=== PATIENT | male | born 1955 | race Hispanic/Latino ===

== ENCOUNTER 2020-05-13 12:12 | Emergency (ER) | payer OTHER ==
--- NOTE | 2020-05-14 07:27 | EDPHYS ---
Physician Documentation [facility] Name: Uli Ackerman Age: 65 yrs Sex: Male : 1955 Arrival Date: 05/13/2020 Time: 12:17 Bed 19 Private MD: ED Physician Kishore Gonsales HPI: 05/13 12:35 This 65 yrs old Male presents to ER via Ambulatory with complaints of Fall rn Injury. 12:35 Details of fall: The patient fell from an upright position. rn 12:36 Onset: The symptoms/episode began/occurred 2 day(s) ago. rn 12:52 Associated injuries: The patient sustained injury to the head. Severity of symptoms: At rn their worst the symptoms were mild, in the emergency department the symptoms are unchanged. The patient has not experienced similar symptoms in the past. The patient has not recently seen a physician. Reports fell backward from standing, thinks lost his balance, reports hit head on table, no LOC, no vomiting, happened 2 days ago, no seizure, feels fine, is on blood thinner that he does not know name, and told him to come get checked. . Historical: - Allergies: 12:39 No Known Allergies; ks7 - Home Meds: 12:39 Novolog 100 unit/mL Sub-Q soln [Active]; Lantus 100 unit/mL Sub-Q soln [Active]; ks7 metformin 500 mg Oral tab 1 tab 2 times per day [Active]; aspirin 81 mg Oral TbEC 1 tab once daily [Active]; Vitamin B-12 500 mcg Oral tab [Active]; - PMHx: 12:39 Diabetes - NIDDM; Hypertension; ks7 - PSHx: 12:39 Tonsillectomy; Cataract Surgery; ks7 - Immunization history: Last tetanus immunization: - up to date. - Social history:: Smoking status: Patient denies any tobacco usage or history of. - Family history:: not pertinent. - Hospitalizations: : No recent hospitalization is reported. ROS: 12:52 Constitutional: Negative for fever, chills, and weight loss, Eyes: Negative for injury, rn pain, redness, and discharge, Neck: Negative for injury, pain, and swelling, Cardiovascular: Negative for chest pain, palpitations, and edema, Respiratory: Negative for shortness of breath, cough, wheezing, and pleuritic chest pain, Abdomen/GI: Negative for abdominal pain, nausea, vomiting, diarrhea, and constipation, MS/Extremity: Negative for injury and deformity, Neuro: Negative for headache, numbness, tingling, and seizure. Exam: 12:52 Constitutional: This is a well developed, well nourished patient who is awake, alert, rn and in no acute distress. Head/Face: Normocephalic, abrasion left posterior temproal region, no depression, no laceration Eyes: Pupils equal round and reactive to light, extra-ocular motions intact. Neck: Trachea midline, no masses palpated, Supple, full range of motion without nuchal rigidity, or vertebral point tenderness. No Meningismus. Cardiovascular: Regular rate and rhythm. No pulse deficits. Respiratory: No increased work of breathing, no retractions or nasal flaring. Abdomen/GI: soft, non-tender Back: No spinal tenderness. No costovertebral tenderness. Full range of motion. MS/ Extremity: Pulses equal, no cyanosis. Neurovascular intact. Full, normal range of motion. Equal circumference. Neuro: Awake and alert, GCS 15, oriented to person, place, time, and situation. Cranial nerves II-XII grossly intact. Motor strength 5/5 in all extremities. Sensory grossly intact. Cerebellar exam normal. Normal gait. Vital Signs: 12:25 BP 182 / 85; Pulse 87; Resp 18; Temp 98.7(O); Pulse Ox 99% on R/A; Pain 0/10; ks7 12:59 BP 134 / 76; Pulse 85; Resp 18; Pulse Ox 99% on R/A; Pain 0/10; ks7 13:11 BP 126 / 78; Pulse 80; Resp 18; Temp 98.6(O); Pulse Ox 98% on R/A; Pain 0/10; ks7 Mikayla Coma Score: 12:25 Eye Response: spontaneous(4). Verbal Response: oriented(5). Motor Response: obeys ks7 commands(6). Total: 15. Trauma Score (Adult): 12:25 Eye Response: spontaneous(1); Verbal Response: oriented(1); Motor Response: obeys ks7 commands(2); Systolic BP: > 89 mm Hg(4); Respiratory Rate: 10 to 29 per min(4); Gloster Score: 15; Trauma Score: 12 MDM: 12:19 Patient medically screened. rn 12:54 ED course: Pt reports some weight loss over last few months along with weak urine rn stream, recommend f/u with urology and pcp for prostate screening and evaluation for cancer. . 13:02 Differential diagnosis: closed head injury. Data reviewed: vital signs, nurses notes, rn radiologic studies, CT scan, and as a result, I will discharge patient. Counseling: I had a detailed discussion with the patient and/or guardian regarding: the historical points, exam findings, and any diagnostic results supporting the discharge/admit diagnosis, radiology results, the need for outpatient follow up, to return to the emergency department if symptoms worsen or persist or if there are any questions or concerns that arise at home. Special discussion: Based on the patient's history, exam and DX evaluation, there is no indication for emergent intervention or inpatient [place]. It is understood by the patient/guardian that if the SXs persist or worsen they need to return immediately for re-evaluation. I discussed with the patient/guardian in detail that at this point there is no indication for admission to the hospital. It is understood, however, that if the symptoms persist or worsen the patient needs to return immediately for re-evaluation. Administered Medications: No medications were administered Disposition: 05/13/20 13:03 Discharged to Home. Impression: Superficial injury of head. - Condition is Stable. - Discharge Instructions: Head Injury, Adult. - Medication Reconciliation Form, Thank You Letter, Antibiotic Education, Prescription Opioid Use form. - Follow up: Private Physician; When: As needed; Reason: Recheck today's complaints, Re-evaluation by your physician. - Problem is new. - Symptoms have improved. Signatures: Kishore Gonsales MD MD rn Songcuan, Kathleen, RN RN ks7 Corrections: (The following items were deleted from the chart) 13:15 13:03 05/13/2020 13:03 Discharged to Home. Impression: Superficial injury of head. ks7 Condition is Stable. Forms are Medication Reconciliation Form, Thank You Letter, Antibiotic Education, Prescription Opioid Use. Follow up: Private Physician; When: As needed; Reason: Recheck today's complaints, Re-evaluation by your physician. Problem is new. Symptoms have improved. rn
--- NOTE | 2020-05-14 07:27 | ER ---
Nurse's Notes [facility] Name: Uli Ackerman Age: 65 yrs Sex: Male : 1955 Arrival Date: 05/13/2020 Time: 12:17 Bed 19 Private MD: Diagnosis: Superficial injury of head Presentation: 05/13 12:30 Chief complaint: Patient states: pt comes in from home c/o GLF on Wednesday. Denies LOC. ks7 Denies BENITO. c/o generalized weakness ongoing. Care prior to arrival: None. Mechanism of Injury: Fall GLF from standing. 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 No LOC. Trauma event details: Injury occurred: at home. 12:30 Acuity: CHELSEA 3 ks7 12:30 Method Of Arrival: Ambulatory ks7 13:14 Coronavirus screen: Client denies travel out of the [place] in the last 14 days. At this ks7 time, the client does not indicate any symptoms associated with coronavirus-19. The client denies any previous COVID testing. Ebola Screen: Patient negative for fever greater than or equal to 101.5 degrees Fahrenheit, and additional compatible Ebola Virus Disease symptoms Patient denies exposure to infectious person. Patient denies travel to an Ebola-affected area in the 21 days before illness onset. Initial Sepsis Screen: Does the patient meet any 2 criteria? No. Patient's initial sepsis screen is negative. Does the patient have a suspected source of infection? No. Patient's initial sepsis screen is negative. Risk Assessment: Do you want to hurt yourself or someone else? Patient reports no desire to harm self or others. Onset of symptoms was May 11, 2020. Trauma Activation: Not Applicable Physician: ED Physician; Name: ; Notified At: ; Arrived At: Physician: General Surgeon; Name: ; Notified At: ; Arrived At: Physician: Radiology; Name: ; Notified At: ; Arrived At: Physician: Respiratory; Name: ; Notified At: ; Arrived At: Physician: Lab; Name: ; Notified At: ; Arrived At: Historical: - Allergies: 12:39 No Known Allergies; ks7 - Home Meds: 12:39 Novolog 100 unit/mL Sub-Q soln [Active]; Lantus 100 unit/mL Sub-Q soln [Active]; ks7 metformin 500 mg Oral tab 1 tab 2 times per day [Active]; aspirin 81 mg Oral TbEC 1 tab once daily [Active]; Vitamin B-12 500 mcg Oral tab [Active]; - PMHx: 12:39 Diabetes - NIDDM; Hypertension; ks7 - PSHx: 12:39 Tonsillectomy; Cataract Surgery; ks7 - Immunization history: Last tetanus immunization: - up to date. - Social history:: Smoking status: Patient denies any tobacco usage or history of. - Family history:: not pertinent. - Hospitalizations: : No recent hospitalization is reported. Screenin:25 Abuse screen: Denies threats or abuse. Denies injuries from another. Tuberculosis ks7 screening: No symptoms or risk factors identified. 12:40 Nutritional screening: No deficits noted. Fall Risk Fall in past 12 months (25 points). ks7 No secondary diagnosis (0 pts). No IV (0 pts). Ambulatory Aid- None/Bed Rest/Nurse Assist (0 pts). Gait- Normal/Bed Rest/Wheelchair (0 pts) Mental Status- Oriented to own ability (0 pts). Total Frank Fall Scale indicates Low Risk Score (25-44 pts). Side Rails Up X 2 Frequent Obs/Assesments occuring As available Patient and Family Educated on Fall Prevention Program and strategies. Primary Survey: 12:28 NO uncontrolled hemorrhage observed. A: Airway: patent. Breathing/Chest: Respiratory ks7 pattern: regular. Circulation: Cardiac rhythm: sinus rhythm. Disability Alert. Exposure/Environment: There is no evidence of uncontrolled external bleeding. No obvious injuries are noted at this time. 13:12 Reassessment Breathing/Chest Respiratory pattern Regular Respiratory effort Spontaneous ks7 Unlabored. Secondary Survey: 12:32 HEENT: No deficits noted. Gastrointestinal: No deficits noted. : No deficits noted. ks7 Musculoskeletal: No deficits noted. Assessment: 12:20 Reassessment: Pt comes in from home ambulatory. fell on Wednesday after trying to pick ksAdalgisa up a case of water, fell backwards and hit the back of his head. Pt denies LOC but had a hard time standing up after fall. States he feels weak, "like the energy is gone". Denies BENITO. Denies blood in his stool. pt is on blood thinners. pt comes in bc made him come in to get checked out. General: Appears in no apparent distress. Behavior is calm, cooperative. Neuro: No deficits noted. Reports weakness. Injury Description: Head injury sustained to Left parietal, occiput. was sustained 2 days ago. 12:33 Pain: Denies pain. ks7 Vital Signs: 12:25 BP 182 / 85; Pulse 87; Resp 18; Temp 98.7(O); Pulse Ox 99% on R/A; Pain 0/10; ks7 12:59 BP 134 / 76; Pulse 85; Resp 18; Pulse Ox 99% on R/A; Pain 0/10; ks7 13:11 BP 126 / 78; Pulse 80; Resp 18; Temp 98.6(O); Pulse Ox 98% on R/A; Pain 0/10; ks7 Mikayla Coma Score: 12:25 Eye Response: spontaneous(4). Verbal Response: oriented(5). Motor Response: obeys ks7 commands(6). Total: 15. Trauma Score (Adult): 12:25 Eye Response: spontaneous(1); Verbal Response: oriented(1); Motor Response: obeys ks7 commands(2); Systolic BP: > 89 mm Hg(4); Respiratory Rate: 10 to 29 per min(4); Mikayla Score: 15; Trauma Score: 12 ED Course: 12:17 Patient arrived in ED. ds1 12:19 Kishore Gonsales MD is Attending Physician. rn 12:19 Ping Hairston RN is Primary Nurse. ks7 12:25 Patient has correct armband on for positive identification. Bed in low position. Call ks7 light in reach. Side rails up X2. 12:25 Patient maintains SpO2 saturation greater than 95% on room air. ks7 12:32 Triage completed. ks7 12:[address] via wheelchair. ks7 12:40 No provider procedures requiring assistance completed. Patient did not have IV access ks7 during this emergency room visit. 12:50 Patient moved back from CT. ks7 13:14 Arm band placed on. ks7 13:14 Thermoregulation: none needed. ks7 Administered Medications: No medications were administered Intake: 12:25 PO: 0ml; Total: 0ml. ks7 Output: 12:25 Urine: 0ml; Total: 0ml. ks7 Outcome: 13:03 Discharge ordered by MD. rn 13:11 Discharged to home ambulatory. ks7 13:11 Condition: good 13:11 Patient's length of stay was not longer than 2 hours. 13:14 Discharge instructions given to patient, Instructed on discharge instructions, follow ks7 up and referral plans. Demonstrated understanding of instructions, follow-up care. 13:15 Patient left the ED. ks7 Signatures: MichaelFlorentini ds1 Kishore Gonsales MD MD rn Songcuan, Kathleen, RN RN ks7 Corrections: (The following items were deleted from the chart) 12:32 12:25 BP 182 / 85; Pulse 87bpm; Resp 18bpm; Pulse Ox 99% RA; Pain 0/10; ks7 ks7
[2020-05-14 08:48] VITALS: BP 126/78; TEMP 98.6; O2SAT 98
--- NOTE | 2020-05-14 12:36 | RAD REPORT ---
EXAM DESCRIPTION: CT - Head Brain Wo Cont - 05/13/2020 2:38 pm CLINICAL HISTORY: FALL Fall, trauma, head injury COMPARISON: No comparisons TECHNIQUE: All CT scans are performed using dose optimization technique as appropriate and may inclu de automated exposure control or mA/KV adjustment according to patient size. FINDINGS: No intracranial hemorrhage, hydrocephalus or extra-axial fluid collection.No areas of brai n edema or evidence of midline shift. The paranasal sinuses and mastoids are essentially clear. The calvarium is intact. IMPRESSION: No acute intracranial abnormality.
== END 2020-05-13 13:15 | disposition home or self-care (01) ==
LOC: ER 12:12
DX: S00.90XA Unspecified superficial injury of unspecified part of head, initial encounter (principal); W19.XXXA Unspecified fall, initial encounter; Y93.89 Activity, other specified; Y92.9 Unspecified place or not applicable; Z79.4 Long term (current) use of insulin; Z79.82 Long term (current) use of aspirin; I10 Essential (primary) hypertension; E11.9 Type 2 diabetes mellitus without complications
CPT/HCPCS: 70450; 99284

== ENCOUNTER 2020-08-17 14:38 | Emergency (ER) | payer OTHER ==
--- NOTE | 2020-08-17 15:52 | RAD REPORT ---
EXAM DESCRIPTION: RAD - Femur Left - 08/17/2020 3:36 pm CLINICAL HISTORY: Leg pain FINDINGS: No fracture seen
--- NOTE | 2020-08-17 16:22 | ER ---
Nurse's Notes [facility] Name: Uli Ackerman Age: 65 yrs Sex: Male : 1955 Arrival Date: 08/17/2020 Time: 14:40 Bed 25 Private MD: Diagnosis: Pain in left leg Presentation: 08/17 14:54 Chief complaint: Patient states: "I [facility] after I visited after a jd3 fall. the doctor had me get an ultrasound because of it. they told me to come here and get an X-ray because the ultrasound i had a hematoma, and it showed no blood clot. they just want to make sure it is ok with an x-ray." left thigh. Coronavirus screen: At this time, the client does not indicate any symptoms associated with coronavirus-19. Ebola Screen: Patient negative for fever greater than or equal to 101.5 degrees Fahrenheit, and additional compatible Ebola Virus Disease symptoms. Initial Sepsis Screen: Does the patient meet any 2 criteria? No. Patient's initial sepsis screen is negative. Does the patient have a suspected source of infection? No. Patient's initial sepsis screen is negative. Risk Assessment: Do you want to hurt yourself or someone else? Patient reports no desire to harm self or others. Onset of symptoms was August 17, 2020. 14:54 Method Of Arrival: Ambulatory jd3 14:54 Acuity: CHELSEA 4 jd3 Historical: - Allergies: 14:58 No Known Allergies; jd3 - Home Meds: 14:58 aspirin 81 mg Oral TbEC 1 tab once daily [Active]; Lantus 100 unit/mL Sub-Q soln jd3 [Active]; metformin 500 mg Oral tab 1 tab 2 times per day [Active]; Novolog 100 unit/mL Sub-Q soln [Active]; Vitamin B-12 500 mcg Oral tab [Active]; - PMHx: 14:58 Diabetes - NIDDM; Hypertension; jd3 - PSHx: 14:58 Tonsillectomy; Cataract Surgery; jd3 - Immunization history:: Adult Immunizations up to date. - Social history:: Smoking status: Patient denies any tobacco usage or history of. Screenin:00 Abuse screen: Denies threats or abuse. Nutritional screening: No deficits noted. aa5 Tuberculosis screening: No symptoms or risk factors identified. Fall Risk Fall in past 12 months (25 points). Ambulatory Aid- Crutches/Cane/Walker (15 pts). Total Frank Fall Scale indicates Low Risk Score (25-44 pts). Fall prevention measures have been instituted. Side Rails Up X 2 Placed close to Nursing Station. Assessment: 15:00 General: Appears comfortable, Behavior is calm, cooperative. Pain: Complains of pain in aa5 left leg Pain currently is 5 out of 10 on a pain scale. Quality of pain is described as aching. Neuro: Level of Consciousness is awake, alert, obeys commands, Oriented to person, place, time, situation. Cardiovascular: Patient's skin is warm and dry. Respiratory: Airway is patent Respiratory effort is even, unlabored, Respiratory pattern is regular, symmetrical. GI: No signs and/or symptoms were reported involving the gastrointestinal system. : No signs and/or symptoms were reported regarding the genitourinary system. EENT: No signs and/or symptoms were reported regarding the EENT system. Derm: Skin is pink, warm \\T\\ dry. Bruising that is green, yellow, on left lower leg. Musculoskeletal: Range of motion: intact in all extremities, Swelling present in left lower leg. 15:36 Reassessment: Patient is alert, oriented x 3, equal unlabored respirations, skin aa5 warm/dry/pink. Awaiting x-ray results, pt notified of wait time. . 16:35 Reassessment: Patient is alert, oriented x 3, equal unlabored respirations, skin aa5 warm/dry/pink. Vital Signs: 14:58 BP 163 / 86; Pulse 78; Resp 16 S; Temp 97.8(TE); Pulse Ox 99% on R/A; Weight 90.26 kg jd3 (R); Height 5 ft. 4 in. (162.56 cm) (R); Pain 5/10; 14:58 Body Mass Index 34.16 (90.26 kg, 162.56 cm) jd3 ED Course: 14:40 Patient arrived in ED. ag5 14:57 Triage completed. jd3 14:59 Arm band placed on. jd3 15:00 Patient has correct armband on for positive identification. Bed in low position. Call aa5 light in reach. Side rails up X2. Adult w/ patient. Pulse ox on. NIBP on. 15:02 David Schaffer NP is PHCP. pm1 15:02 Kishore Gonsales MD is Attending Physician. pm1 15:19 Valarie Aponte, RN is Primary Nurse. aa5 15:36 Femur Left XRAY In Process Unspecified. EDMS 16:36 No provider procedures requiring assistance completed. Patient did not have IV access aa5 during this emergency room visit. Administered Medications: No medications were administered Outcome: 16:21 Discharge ordered by . pm1 16:37 Discharged to home ambulatory, with significant other. aa5 16:37 Condition: stable 16:37 Discharge instructions given to patient, significant other, Instructed on discharge instructions, follow up and referral plans. Demonstrated understanding of instructions, follow-up care. 16:37 Patient left the ED. aa5 Signatures: Dispatcher [employer] EDCA Valarie Aponte, RN RN aa5 David Schaffer NP B[employer]ING[employer] RECEPTIONIST pm1 Johan Rodriguez RN RN [place] ag5
--- NOTE | 2020-08-17 16:22 | EDPHYS ---
Physician Documentation [facility] Name: Uli Ackerman Age: 65 yrs Sex: Male : 1955 Arrival Date: 08/17/2020 Time: 14:40 Bed 25 Private MD: ED Physician Kishore Gonsales HPI: 08/17 15:10 This 65 yrs old Male presents to ER via Ambulatory with complaints of Sent by pm1 Dr. Mccord - XRay of LT Thigh. 15:10 The patient presents with pain. The complaints affect the left upper leg. Context: The pm1 problem was sustained outdoors, resulted from the patient falling, can ambulate using a cane. Onset: The symptoms/episode began/occurred Patient fell in June 2020. Modifying factors: The symptoms are alleviated by nothing. the symptoms are aggravated by nothing. Associated signs and symptoms: Pertinent negatives calf tenderness, fever, numbness, swelling, tingling. Treatment prior to arrival includes: Patient with ultrasound of his leg 2 days ago that was negative for DVT. PCP sent him to the ER for xray of his left thigh. 15:46 Patient with left thigh pain and swelling in May 2020 due to apparent reaction to pm1 atorvastatin. He was hospitalized for 4 days and when he was discharged he reported left leg weakness. In June he was getting into a car and his left leg gave out and he almost fell down. His brother caught him from behind but he got left thigh pain and swelling. PCP performed ultrasound of his left leg 2 days ago and it was negative for DVT. There was a hematoma on the ultrasound. She called him today to come to the ER for x-ray left thigh. Historical: - Allergies: 14:58 No Known Allergies; jd3 - Home Meds: 14:58 aspirin 81 mg Oral TbEC 1 tab once daily [Active]; Lantus 100 unit/mL Sub-Q soln jd3 [Active]; metformin 500 mg Oral tab 1 tab 2 times per day [Active]; Novolog 100 unit/mL Sub-Q soln [Active]; Vitamin B-12 500 mcg Oral tab [Active]; - PMHx: 14:58 Diabetes - NIDDM; Hypertension; jd3 - PSHx: 14:58 Tonsillectomy; Cataract Surgery; jd3 - Immunization history:: Adult Immunizations up to date. - Social history:: Smoking status: Patient denies any tobacco usage or history of. ROS: 15:46 Constitutional: Negative for fever, chills, and weight loss, Cardiovascular: Negative pm1 for chest pain, palpitations, and edema, Respiratory: Negative for shortness of breath, cough, wheezing, and pleuritic chest pain. 15:46 Skin: Negative for injury, rash, and discoloration, Neuro: Negative for headache, weakness, numbness, tingling, and seizure. 15:46 MS/extremity: Positive for pain, of the left leg, Negative for decreased range of motion, deformity. 15:46 All other systems are negative. Exam: 15:46 Constitutional: This is a well developed, well nourished patient who is awake, alert, pm1 and in no acute distress. Head/Face: Normocephalic, atraumatic. 15:46 Skin: Warm, dry with normal turgor. Normal color with no rashes, no lesions, and no evidence of cellulitis. 15:46 Cardiovascular: Exam negative for acute changes, Rate: normal, Rhythm: regular, Pulses: no pulse deficits are appreciated, Edema: is not appreciated. 15:46 Respiratory: Exam negative for acute changes, respiratory distress, shortness of breath. 15:46 Musculoskeletal/extremity: Extremities: grossly normal except: noted in the distal left quadriceps: tenderness, There is no evidence of ecchymosis, swelling. 15:46 Neuro: Exam negative for acute changes, Orientation: is normal, Mentation: is normal, Motor: is normal, moves all fours. Vital Signs: 14:58 BP 163 / 86; Pulse 78; Resp 16 S; Temp 97.8(TE); Pulse Ox 99% on R/A; Weight 90.26 kg jd3 (R); Height 5 ft. 4 in. (162.56 cm) (R); Pain 5/10; 14:58 Body Mass Index 34.16 (90.26 kg, 162.56 cm) jd3 MDM: 15:02 Patient medically screened. pm1 15:39 ED course: Patient with negative ultrasound of left thigh 2 days ago for DVT. pm1 15:39 ED course: Patient does not have his ultrasound results and is under the impression pm1 that he is her just for a x-ray of his left thigh. I called Dr. Mccord with the patient but she is not educational coordinator for her patients and we were [facility]. 15:57 Data reviewed: vital signs. Data interpreted: Pulse oximetry: on room air is 99 %. pm1 Interpretation: normal. 16:20 Counseling: I had a detailed discussion with the patient and/or guardian regarding: the pm1 historical points, exam findings, and any diagnostic results supporting the discharge/admit diagnosis, radiology results, the need for outpatient follow up, to return to the emergency department if symptoms worsen or persist or if there are any questions or concerns that arise at home. 08/17 15:10 Order name: Femur Left XRAY; Complete Time: 15:57 pm1 Administered Medications: No medications were administered Disposition: 17:24 Co-signature as Attending Physician, Kishore Gonsales MD. rn Disposition: 08/17/20 16:21 Discharged to Home. Impression: Pain in left leg. - Condition is Stable. - Discharge Instructions: Musculoskeletal Pain. - Medication Reconciliation Form, Thank You Letter, Antibiotic Education, Prescription Opioid Use form. - Follow up: Emergency Department; When: As needed; Reason: Worsening of condition. Follow up: Private Physician; When: 2 - 3 days; Reason: Recheck today's complaints, Continuance of care, Re-evaluation by your physician. - Problem is new. - Symptoms are unchanged. Signatures: Dispatcher [employer] EDMS Kishore Gonsales MD MD rn Calderon, Audri, RN RN aa5 David Schaffer, TOBACCO SIZER TOBACCO SIZER pm1 Johan Rodriguez RN RN jd3 Corrections: (The following items were deleted from the chart) 15:50 15:10 Treatment prior to arrival includes: Patient with ultrasound of his leg 2 days pm1 ago that was negative. PCP sent him to the ER for xray of his left thigh, pm1 16:08 15:39 ED course: Patient with negative ultrasound of left thigh 2 days ago. pm1 pm1 16:37 16:21 08/17/2020 16:21 Discharged to Home. Impression: Pain in left leg. Condition is aa5 Stable. Forms are Medication Reconciliation Form, Thank You Letter, Antibiotic Education, Prescription Opioid Use. Follow up: Emergency Department; When: As needed; Reason: Worsening of condition. Follow up: Private Physician; When: 2 - 3 days; Reason: Recheck today's complaints, Continuance of care, Re-evaluation by your physician. Problem is new. Symptoms are unchanged. pm1
[2020-08-17 17:00] VITALS: BP 163/86; TEMP 97.8; O2SAT 99
== END 2020-08-17 16:37 | disposition home or self-care (01) ==
LOC: ER 14:38
DX: M79.605 Pain in left leg (principal); I10 Essential (primary) hypertension; E11.9 Type 2 diabetes mellitus without complications; Z79.82 Long term (current) use of aspirin
CPT/HCPCS: 99283

== ENCOUNTER → 2023-10-25 | Emergency (ER) | payer OTHER ==
[~2023-10-25] MED LIST: NA CHLORIDE 0.9% 1,000 ML ONE
--- NOTE | 2023-10-25 12:38 | RAD REPORT ---
EXAM DESCRIPTION: CT - Head Brain Wo Cont - 10/25/2023 12:27 pm CLINICAL HISTORY: Dizziness;Visual disturbances COMPARISON: Head Brain Wo Cont dated 05/13/2020 TECHNIQUE: All CT scans are performed using dose optimization technique as appropriate and may inclu de automated exposure control or mA/KV adjustment according to patient size. FINDINGS: No intracranial hemorrhage, hydrocephalus or extra-axial fluid collection.No areas of brai n edema or evidence of midline shift. The paranasal sinuses and mastoids are clear. The calvarium is intact. IMPRESSION: No acute intracranial abnormality.
[2023-10-25 13:09] LABS: Absolute Lymphocytes (CBC) 1.1 K/uL (0.7-4.9); Hematocrit 42.1 % (39.6-49.0); Lymphocytes % 17.1 % (15.3-44.8); MCV 82.6 fL (80-100); MPV 7.5 fL (7.6-11.3); Platelets 224 thou/uL (152-406)
[2023-10-25 13:11] LABS: ALT/SGPT 49 U/L (16-61); AST/SGOT 21 U/L (15-37); Albumin 3.5 g/dL (3.4-5.0); Alkaline Phosphatase 110 U/L (45-117); BUN Blood Urea Nitrogen 29 mg/dL (7-18); Bicarbonate 26 mEq/L (21-32); Bilirubin Total 0.3 mg/dL (0.2-1.0); Glomerular Filtration Rate 78 ml/min (=/>90); Glucose Level 155 mg/dL (74-106); Magnesium 1.9 mg/dL (1.6-2.4); Protein, Total 7.3 g/dL (6.4-8.2); Sodium Level 136 mEq/L (136-145); Troponin High Sensitivity 10.4 pg/mL (<58.9)
[2023-10-25 13:12] LABS: Bilirubin Direct < 0.1 mg/dL (0-0.2); Bilirubin Indirect, Calculated ND mg/dL (0.2-0.8)
[2023-10-25 13:17] LABS: Protime INR 1.07
--- NOTE | 2023-10-25 13:34 | RAD REPORT ---
EXAM DESCRIPTION: [facility] Single View10/25/2023 1:11 pm CLINICAL HISTORY: CHEST PAIN COMPARISON: No comparisons TECHNIQUE: Portable AP view of the chest. FINDINGS: The lungs are clear. No pneumothorax or effusion. The cardiomediastinal contours are unre markable. IMPRESSION: No acute cardiopulmonary process.
--- NOTE | 2023-10-25 14:18 | EDPHYS ---
Physician Documentation [facility] Name: Uli Ackerman Age: 68 yrs Sex: Male : 1955 Arrival Date: 10/25/2023 Time: 11:38 Bed 19 Private MD: ED Physician Basil Ramirez HPI: 10/25 12:27 This 68 yrs old Male presents to ER via Unassigned with complaints of visual sb4 changes. 12:27 Patient states that he was sitting down at work when he believed to see his coworkers sb4 jumping up and down. They were standing still, he was having a visual disturbance. He says that it lasted about 20 seconds then resolved. He denies any current symptoms. No chest pain, shortness of breath, fever, nausea, vomiting. Reports compliance with his medication. Historical: - Allergies: 12:00 No Known Allergies; rs5 - PMHx: 12:00 Diabetes - NIDDM; Hypertension; rs5 - PSHx: 12:00 Cataract surgery; rs5 - Immunization history:: Adult Immunizations up to date. - Social history:: Smoking status: Patient denies any tobacco usage or history of. ROS: 12:27 Constitutional: Negative for fever, chills, and weight loss, sb4 12:27 Eyes: Positive for visual disturbance, 12:27 All other systems are negative, Exam: 12:27 Constitutional: This is a well developed, well nourished patient who is awake, alert, sb4 and in no acute distress. Head/Face: Normocephalic, atraumatic. Eyes: Extra-ocular motions intact. Periorbital areas with no swelling, redness, or edema. ENT: Mucous membranes moist. Cardiovascular: Regular rate and rhythm with a normal S1 and S2. Respiratory: Lungs have equal breath sounds bilaterally, clear to auscultation and percussion. No rales, rhonchi or wheezes noted. No increased work of breathing, no retractions or nasal flaring. Abdomen/GI: Soft, non-tender, no distension. Skin: Warm, dry with normal turgor. Normal color with no rashes, no lesions, and no evidence of cellulitis. MS/ Extremity: Pulses equal, no cyanosis. Neurovascular intact. Full, normal range of motion. Neuro: Awake and alert, GCS 15, oriented to person, place, time, and situation. Motor strength 5/5 in all extremities. Sensory grossly intact. 12:40 Radiologist reports: negative sb4 Vital Signs: 12:00 BP 133 / 81; Pulse 70; Resp 17; Pulse Ox 99% on R/A; rs5 12:53 BP 152 / 73; Pulse 73; Resp 17; Temp 97.8(TE); Pulse Ox 98% on R/A; ap3 13:44 BP 127 / 75; Pulse 72; rs5 13:46 BP 126 / 75; Pulse 74; rs5 13:48 BP 130 / 87; Pulse 77; rs5 14:46 BP 133 / 77; Pulse 76; Resp 17; Pulse Ox 99% ; rs5 MDM: 11:55 Patient medically screened. sb4 12:29 Differential diagnosis: CVA, TIA, migraine, electrolyte abnormality, ACS. sb4 14:17 Data reviewed: vital signs, nurses notes, lab test result(s), EKG, radiologic studies, sb4 and as a result, I will discharge patient. Care significantly affected by the following chronic conditions: Diabetes, Hypertension. Counseling: I had a detailed discussion with the patient and/or guardian regarding the historical points, exam findings, and any diagnostic results supporting the discharge/admit diagnosis, lab results, radiology results, to return to the emergency department if symptoms worsen or persist or if there are any questions or concerns that arise at home. 10/25 12:17 Order name: Basic Metabolic Panel; Complete Time: 13:13 sb4 10/25 12:17 Order name: CBC with Diff; Complete Time: 13:12 sb4 10/25 12:17 Order name: Hepatic Function; Complete Time: 13:13 sb4 10/25 12:17 Order name: Magnesium; Complete Time: 13:13 sb4 10/25 12:17 Order name: Protime (+inr); Complete Time: 13:17 sb4 10/25 12:17 Order name: Ptt, Activated; Complete Time: 13:17 sb4 10/25 12:17 Order name: Troponin High Sensitivity; Complete Time: 13:13 sb4 10/25 12:17 Order name: CT Head Brain wo Cont; Complete Time: 12:40 sb4 10/25 12:17 Order name: Chest Single View XRAY; Complete Time: 13:38 sb4 10/25 12:17 Order name: EKG; Complete Time: 12:18 sb4 10/25 12:17 Order name: Cardiac monitoring; Complete Time: 13:06 sb4 10/25 12:17 Order name: EKG - Nurse/Tech; Complete Time: 13:56 sb4 10/25 12:17 Order name: IV Saline Lock; Complete Time: 12:54 sb4 10/25 12:17 Order name: Labs collected and sent; Complete Time: 13:50 sb4 10/25 12:17 Order name: O2 Per Protocol; Complete Time: 12:54 sb4 10/25 12:17 Order name: O2 Sat Monitoring; Complete Time: 12:54 sb4 10/25 12:17 Order name: Orthostatics; Complete Time: 13:50 sb4 10/25 13:18 Order name: Visual Acuity; Complete Time: 14:15 sb4 Administered Medications: 13:20 Drug: NS 0.9% IV 1000 ml IV at 1 bolus Per protocol; 1000 mL bolus Route: IV; Rate: 1 rs5 bolus; Site: right forearm; 14:47 Follow up: Response: No adverse reaction rs5 Disposition Summary: 10/25/23 14:17 Discharge Ordered Notes: Location: Home sb4 Problem: new sb4 Symptoms: are resolved sb4 Condition: Stable sb4 Diagnosis - Other visual disturbances - resolved sb4 Followup: sb4 - With: Emergency Department - When: As needed - Reason: Trouble breathing, Worsening of condition Discharge Instructions: - Discharge Summary Sheet sb4 - Visual Disturbances sb4 Forms: - Medication Reconciliation Form sb4 - Thank You Letter sb4 - Antibiotic Education sb4 - Prescription Opioid Use sb4 - Patient Portal Instructions sb4 - Leadership Thank You Letter sb4 - Work release form rs5 Addendum: 10/26/2023 15:37 I was immediately available for consultation during this patient's visit. I did not e c2 personally see the patient or discuss the patient with the JAVIER. . Signatures: Dispatcher [employer] Mary Law PA-C PA-C sb4 Jones Bowser RN RN rs5 Basil Ramirez MD MD ec2 Corrections: (The following items were deleted from the chart) 10/25 13:56 12:00 PMHx: Enlarged prostate (Hypertension); rs5 rs5
--- NOTE | 2023-10-25 14:18 | ER ---
Nurse's Notes [facility] Name: Uli Ackerman Age: 68 yrs Sex: Male : 1955 Arrival Date: 10/25/2023 Time: 11:38 Bed 19 Private MD: Diagnosis: Other visual disturbances-resolved Presentation: 10/25 12:00 Chief complaint: Patient states: Pt was at work sitting in a chair and became dizzy rs5 when moving to a standing position. 12:00 Onset of symptoms was October 25, 2023. rs5 12:00 Method Of Arrival: EMS: [facility] rs5 13:07 Coronavirus screen: At this time, the client does not indicate any symptoms associated ap3 with coronavirus-19. Ebola Screen: No symptoms or risks identified at this time. Initial Sepsis Screen: Does the patient meet any 2 criteria? No. Patient's initial sepsis screen is negative. Does the patient have a suspected source of infection? No. Patient's initial sepsis screen is negative. Risk Assessment: Do you want to hurt yourself or someone else? Patient reports no desire to harm self or others. 13:07 Acuity: CHELSEA 3 ap3 Historical: - Allergies: 12:00 No Known Allergies; rs5 - PMHx: 12:00 Diabetes - NIDDM; Hypertension; rs5 - PSHx: 12:00 Cataract surgery; rs5 - Immunization history:: Adult Immunizations up to date. - Social history:: Smoking status: Patient denies any tobacco usage or history of. Screenin:00 [facility] ED Fall Risk Assessment (Adult) History of falling in the last 3 months, rs5 including since admission No falls in past 3 months (0 pts) Confusion or Disorientation No (0 pts) Intoxicated or Sedated No (0 pts) Impaired Gait No (0 pts) Mobility Assist Device Used No (0 pt) Altered Elimination No (0 pt) Score/Fall Risk Level 0 - 2 = Low Risk Oriented to surroundings, Maintained a safe environment. 12:00 Abuse screen: Denies threats or abuse. Nutritional screening: No deficits noted. rs5 Tuberculosis screening: No symptoms or risk factors identified. Assessment: 12:00 General: Appears in no apparent distress. comfortable, Behavior is calm, cooperative. rs5 Pain: Denies pain. Neuro: Level of Consciousness is awake, alert, obeys commands, Oriented to person, place, time, situation, Reports dizziness. Cardiovascular: Heart tones S1 S2 present Patient's skin is warm and dry. Rhythm is regular. Respiratory: Airway is patent Respiratory effort is even, unlabored, Respiratory pattern is regular, symmetrical, Breath sounds are clear bilaterally. GI: Abdomen is round non-distended, Bowel sounds present X 4 quads. Abd is soft and non tender X 4 quads. : No signs and/or symptoms were reported regarding the genitourinary system. EENT: No signs and/or symptoms were reported regarding the EENT system. Derm: Skin is intact, Skin is pink, warm \T\ dry. Musculoskeletal: Range of motion: intact in all extremities. 13:06 General: Appears in no apparent distress. Behavior is calm, cooperative, appropriate ap3 for age. Pain: Denies pain. Neuro: Level of Consciousness is awake, alert, obeys commands, Oriented to person, place, time, situation, Appropriate for age Speech is normal, Facial symmetry appears normal, Reports dizziness. Cardiovascular: Patient's skin is warm and dry. Respiratory: Airway is patent Respiratory effort is even, unlabored, Respiratory pattern is regular, symmetrical. 13:52 Reassessment: To bedside for orthostatics, pt denies dizziness. rs5 14:46 Reassessment: Patient and/or family updated on plan of care and expected duration. Pain rs5 level reassessed. Patient is alert, oriented x 3, equal unlabored respirations, skin warm/dry/pink. 14:48 Neuro: Denies blurred vision dizziness. rs5 Vital Signs: 12:00 BP 133 / 81; Pulse 70; Resp 17; Pulse Ox 99% on R/A; rs5 12:53 BP 152 / 73; Pulse 73; Resp 17; Temp 97.8(TE); Pulse Ox 98% on R/A; ap3 13:44 BP 127 / 75; Pulse 72; rs5 13:46 BP 126 / 75; Pulse 74; rs5 13:48 BP 130 / 87; Pulse 77; rs5 14:46 BP 133 / 77; Pulse 76; Resp 17; Pulse Ox 99% ; rs5 ED Course: 11:55 Patient arrived in ED. bd 11:55 Mary Landry PA-C is PHCP. sb4 11:55 Basil Ramirez MD is Attending Physician. sb4 12:29 CT Head Brain wo Cont In Process Unspecified. EDMS 13:07 Arm band placed on right wrist. ap3 13:07 Patient has correct armband on for positive identification. Bed in low position. Call ap3 light in reach. Side rails up X2. Adult w/ patient. monitor car operator on. Pulse ox on. NIBP on. Door closed. Noise minimized. 13:08 Triage completed. ap3 13:13 Chest Single View XRAY In Process Unspecified. EDMS 13:27 Jones Bowser, RN is Primary Nurse. rs5 14:48 No provider procedures requiring assistance completed. IV discontinued, intact, rs5 bleeding controlled, No redness/swelling at site. Pressure dressing applied. Administered Medications: 13:20 Drug: NS 0.9% IV 1000 ml IV at 1 bolus Per protocol; 1000 mL bolus Route: IV; Rate: 1 rs5 bolus; Site: right forearm; 14:47 Follow up: Response: No adverse reaction rs5 Medication: 14:48 VIS not applicable for this client. rs5 Outcome: 14:17 Discharge ordered by . sb4 14:48 Discharged to home ambulatory, rs5 14:48 Condition: stable 14:48 Discharge instructions given to patient, family, Instructed on discharge instructions, follow up and referral plans. Demonstrated understanding of instructions, follow-up care, 14:48 Patient left the ED. rs5 Signatures: Dispatcher [employer] EDMS Cathi Valdez Amanda RN RN [email or web address] Mary Landry, PA-C PA-C sb4 Jones Bowser, RN RN rs5 Corrections: (The following items were deleted from the chart) 13:56 12:00 PMHx: Enlarged prostate (Hypertension); rs5 rs5
[2023-10-25 15:33] VITALS: BP 133/77; TEMP 97.8; O2SAT 99
== END ==
LOC: ER 11:38
DX: H53.8 Other visual disturbances (principal); E11.9 Type 2 diabetes mellitus without complications; I10 Essential (primary) hypertension
CPT/HCPCS: 85025; 80048; 36415; 83735; 85610; 80076; 85730; 84484; 70450; 71045; 99285; J7030